=== PATIENT | male | born 2000 | race Asian ===

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

== ENCOUNTER 2021-06-08 16:55 | Emergency (ER) | payer OTHER ==
--- NOTE | 2021-06-08 17:15 | ED Physician Documentation ---
PD HPI HEENT - Stated complaint Stated Complaint: THROAT SWELLING - Chief complaint Chief Complaint: Heent - History obtained from History obtained from: Patient - History of Present Illness Timing - onset: Yesterday Timing - duration: Days (1-2) Timing - details: Gradual onset, Still present (increasing today) Location: Throat (has sore throat and feeling of swelling more to left side. Deels similar to early part of peritonsillar abscess he had couple years ago.) Worsens: Swalllowing Associated symptoms: Swollen nodes. No: Fever, Congestion, Unable to swallow, Facial swelling Similar symptoms before: Diagnosis (had similar onset and then much worsening symptoms previously that was Dx with peritonsillar abscess and required I&D and hospitalized for couppe days.) Recently seen: Not recently seen Review of Systems Constitutional: denies: Fever, Chills Nose: denies: Rhinorrhea / runny nose, Congestion Throat: reports: Sore throat Cardiac: denies: Chest pain / pressure Respiratory: denies: Cough GI: denies: Abdominal Pain, Nausea, Vomiting, Diarrhea Skin: denies: Rash PD PAST MEDICAL HISTORY - Past Medical History Cardiovascular: None Respiratory: None Neuro: None HEENT: Other (prior peritonsillar abscess with surgical drainage in [place] past. ) - Past Surgical History Past Surgical History: No - Present Medications Home Medications: Ambulatory Orders Medication Instructions Recorded Confirmed cephALEXin [Keflex] 500 mg PO QID 5 Days #20 cap 06/08/21 dexAMETHasone [Decadron] 4 mg PO DAILY #5 tablet 06/08/21 diphenhydrAMINE ELIXIR [Benadryl 25 mg PO Q6H PRN #120 ml 06/08/21 Elixir] - Allergies Allergies/Adverse Reactions: Allergies Allergy/AdvReac Type Severity Reaction Status Date / Time No Known Drug Allergies Allergy Verified 06/08/21 17:15 - Social History Does the pt smoke?: No Smoking Status: Never smoker PD ED PE NORMAL - Vitals Vital signs reviewed: Yes - General General: Alert and oriented X 3, No acute distress, Well developed/nourished - HEENT HEENT: No: Pharynx benign (tonsils with some swelling and mild exudate. Left lateral peritonsillar area with some edema but no deviation of the tonsil nor any fluctuance. ) Results - Vitals Vitals: Oxygen O2 Source Room air - Labs Labs: Microbiology 06/08/21 17:23 Group A Strep Throat Culture - Preliminary Throat CULTURE IN PROGRESS. RESULTS TO FOLLOW. Laboratory Tests 06/08/21 17:23 Group A Strep Rapid Negative PD MEDICAL DECISION MAKING - ED course Complexity details: considered differential (has swelling of tonsils with some exudate, but more concern is for some swelling left medial peritonsillar area. No fluctuance. No voice distortion. ), d/w patient Departure - Departure Disposition: 01 Home, Self Care Clinical Impression: Peritonsillitis Acute tonsillitis Qualifiers: Pharyngitis/tonsillitis etiology: unspecified etiology Qualified Code(s): J03.90 - Acute tonsillitis, unspecified Condition: Stable Record reviewed to determine appropriate education?: Yes Instructions: ED Peritonsillar Infec Abx No I andD Follow-Up: LORI Jenkins [Provider Group] Prescriptions: diphenhydrAMINE ELIXIR [Benadryl Elixir] 25 mg PO Q6H PRN #120 ml PRN Reason: Pain dexAMETHasone [Decadron] 4 mg PO DAILY #5 tablet cephALEXin [Keflex] 500 mg PO QID 5 Days #20 cap Comments: Stay well-hydrated. You can use some diphenhydramine liquid periodically for sore throat. Cephalexin as directed for 5 days. Decadron steroid for 5 days as well for inflammation. I would anticipate improvement steadily over the next 2 to 3 days and resolved in that timeframe. Return if worsening. I transmitted your prescription to [facility] in [place]. Discharge Date/Time: 06/08/21 18:06
[2021-06-08] MEDS ORDERED: ACETAMINOPHEN 325 MG TABLET PO STA (17:23)
[2021-06-08] MEDS ORDERED: DEXAMETHASONE 10 MG/ML VIAL IM STA (17:23)
[2021-06-08] MEDS ORDERED: LIDOCAINE 1% 2 ML VIAL MC ONE (17:23)
[2021-06-08] MEDS ORDERED: diphenhydrAMINE ELIXIR 25 MG/10 ML UDC PO STA (17:23)
[2021-06-08] MEDS ORDERED: cefTRIAXone 1 GM VIAL IM STA (17:23)
[2021-06-08 17:34] LABS: RAPID STREP SCREEN Negative (Negative)
[2021-06-08 18:06] VITALS: BP 97/57
== END 2021-06-08 18:06 | disposition home or self-care (01) ==
LOC: ED 16:55
DX: J03.90 Acute tonsillitis, unspecified (principal)
CPT/HCPCS: 87070; 87430; 96372; 99283; A9270

== ENCOUNTER 2021-07-20 10:02 | Emergency (ER) | payer OTHER ==
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
[2021-07-20 11:54] VITALS: BP 107/53
== END 2021-07-20 11:53 | disposition home or self-care (01) ==
LOC: ED 10:02
DX: S60.812A Abrasion of left wrist, initial encounter (principal); S93.401A Sprain of unspecified ligament of right ankle, initial encounter; V89.2XXA Person injured in unspecified motor-vehicle accident, traffic, initial encounter; W22.10XA Striking against or struck by unspecified automobile airbag, initial encounter; Y93.89 Activity, other specified; Y92.411 Interstate highway as the place of occurrence of the external cause; F17.200 Nicotine dependence, unspecified, uncomplicated
CPT/HCPCS: 99282; 99283

== ENCOUNTER 2021-08-17 15:40 | Emergency (ER) | payer OTHER ==
[2021-08-17] MEDS ORDERED: SODIUM CHLORIDE 0.9% 1,000 ML IV STA (16:18)
[2021-08-17] MEDS ORDERED: DEXAMETHASONE 10 MG/ML VIAL PO STA (16:19)
[2021-08-17] MEDS ORDERED: AMPICILLIN/SULBACTAM 3 GM in SODIUM CHLORIDE 0.9% MINIBAG 100 ML IV STA (16:20)
--- NOTE | 2021-08-17 16:27 | ED Physician Documentation ---
History of Present Illness - Stated complaint Stated Complaint: FEVER,SORE THROAT - Chief complaint Chief Complaint: Fever - Additonal information Additional information: 21-year-old male presents emergency department for evaluation of acute sore throat fever dysphonia and difficulty swallowing. Symptoms began yesterday and patient did not think much of it as he recently got the flu vaccine but when he looked in his throat this morning because he could not swallow well and found the swelling he suspected he had a return of a peritonsillar abscess which he was seen and treated for here in June 2020. Review of Systems Constitutional: reports: Fever, Chills Eyes: reports: Reviewed and negative Ears: reports: Reviewed and negative Nose: denies: Rhinorrhea / runny nose, Congestion Throat: reports: Sore throat, Swollen tonsils. denies: Dental pain / toothache Cardiac: reports: Reviewed and negative Respiratory: reports: Reviewed and negative GI: reports: Reviewed and negative : reports: Reviewed and negative PD PAST MEDICAL HISTORY - Past Medical History Cardiovascular: None Respiratory: None Neuro: None Endocrine/Autoimmune: None GI: None : None HEENT: Other Psych: None Musculoskeletal: None Derm: None - Past Surgical History Past Surgical History: Yes - Present Medications Home Medications: Ambulatory Orders Medication Instructions Recorded Confirmed Clindamycin [Cleocin] 450 mg PO TID #72 cap 08/17/21 Oxycodone HCl/Acetaminophen 1 - 2 each PO Q6H PRN #14 tablet 08/17/21 [Percocet 5-325 mg Tablet] predniSONE [Deltasone] 10 mg PO [id number] #42 tab 08/17/21 - Allergies Allergies/Adverse Reactions: Allergies Allergy/AdvReac Type Severity Reaction Status Date / Time No Known Drug Allergies Allergy Verified 07/20/21 10:19 - Social History Does the pt smoke?: Yes Smoking Status: Current some day smoker Does the pt drink ETOH?: Yes Does the pt have substance abuse?: No PD ED PE EXPANDED - General General: Alert, No acute distress, Well developed/nourished - HEENT HEENT: PERRL, EOMI, Ears normal, Tonsillar exudate (Left-sided soft palate asymmetry with swelling. Uvula deviates to the right. Moderate amount of exudate on left-sided tonsils. Difficulty swallowing with dysphonia.) - Cardiac Cardiac: Tachy, Radial strong equal, Cap refill < 2 sec, Prolonged cap refill. No: Murmur Present - Respiratory Respiratory: Clear to ausultation [place]. No: Distress - Abdomen Abdomen: Normal Bowel sounds. No: Tender to palpation - Extremities Extremities: Normal. No: Deformity, Tenderness - Neuro Neuro: Alert and Oriented X 3, CNII-XII intact - GCS Eye Opening: Spontaneous Motor: Obeys Commands Verbal: Oriented Total: 15 Results - Vitals Vitals: Vital Signs - 24 hr 08/17/21 08/17/21 08/17/21 15:51 17:00 18:26 Temperature 38.4 C H 37 C Heart Rate 125 H 93 Respiratory 18 16 Rate Blood Pressure 105/41 L 104/65 O2 Saturation 97 98 Oxygen O2 Source Room air - Labs Labs: Laboratory Tests 08/17/21 08/17/21 08/17/21 16:30 16:34 16:35 WBC 13.0 H RBC 4.62 L Hgb 13.4 L Hct 39.2 L MCV 84.8 MCH 29.0 MCHC 34.2 RDW 12.1 Plt Count 178 MPV 9.7 Neut # (Auto) 10.4 H Lymph # (Auto) 1.0 L [place] # (Auto) 1.2 H Eos # (Auto) 0.2 Baso # (Auto) 0.0 Absolute Nucleated RBC 0.00 Nucleated RBC % 0.0 Sodium 132 L Potassium 3.7 Chloride 97 L Carbon Dioxide 24 Anion Gap 11.0 BUN 13 Creatinine 1.1 Estimated GFR (MDRD) 85 L Glucose 106 H Calcium 9.2 Total Bilirubin 1.3 H AST 15 ALT 12 Alkaline Phosphatase 45 Total Protein 8.3 H Albumin 4.1 Globulin 4.2 Albumin/Globulin Ratio 1.0 Lipase 21 L Group A Strep Rapid Negative - Rads (name of study) Soft tissue neck CT Radiology: Final report received (2.5 cm left peritonsillar abscess with some deviation of tissue rightward. mild narrowing of adjacent airway) PD MEDICAL DECISION MAKING - ED course Complexity details: reviewed results, re-evaluated patient, d/w patient ED course: 21-year-old male presents emergency department for a left [employer]. He had similar in Jun 2020. He did present as febrile and tachycardic though he did not have a significantly elevated white blood cell count. low suspicion for sepsis. his HR and fever improved dramatically with IVF here in the ED CT soft tissue of the neck does show a left peritonsillar abscess measuring in greatest diameter 2.4 cm. Patient was given a dose of Unasyn here in the emergency department as well as [address] Lino Milligan is not available for OMFS consultation today therefore I did consult with Dr. Singer at [facility]. Given that the patient has minimal airway impingement and an otherwise reassuring exam he would recommend clindamycin as an outpatient as well as A prednisone taper. He would recommend close follow-up with either ENT or OMFS for reevaluation given that this is his second episode of peritonsillar abscess. Plan was discussed with the patient. Emergent return precautions were discussed for concerns of worsening swelling or any airway impingement. My narcotic documentation Departure - Departure Disposition: Home, Self Care Clinical Impression: Recurrent peritonsillar abscess Condition: Stable Record reviewed to determine appropriate education?: Yes Prescriptions: Clindamycin [Cleocin] 450 mg PO TID #72 cap predniSONE [Deltasone] 10 mg PO [id number] #42 tab Oxycodone HCl/Acetaminophen [Percocet 5-325 mg Tablet] 1 - 2 each PO Q6H PRN #14 tablet PRN Reason: pain Comments: Fausto you have a left peritonsillar abscess. This was discussed with the on- call ENT physician at [facility] who recommends outpatient treatment initially with a week of antibiotics, prednisone as well as some pain management. I would like you to follow-up with Dr. Lino Laird to talk about long-term management of this recurrent abscess. Lino Laird [phone] [place] [address] I have sent a prescription for clindamycin, prednisone as well as Percocet to the [facility] in [place]. If at any point you find that you are having difficulty breathing, swallowing or feel that your symptoms are not improving, you are to return immediately to the emergency department. I am prescribing a short course of narcotic pain medication for you. These are potentially dangerous and addictive medications that should be used carefully. These medications may constipate you. Take an [id number]-[id number] stool softener (docusate) twice daily with plenty of water while taking these medications. If you go 24 hours without a bowel movement, take [id number] miralax, per p ackage instructions. Do not drink or drive while taking these medications. If you received narcotic or sedating medications while in the emergency department, do not drive for 24 hours. Store this medication in a safe, secure place and out of reach of children. It is a violation of federal law to give or sell this medication to another person or to use in a manner other than prescribed. The ED will not refill narcotic prescriptions, including prescriptions lost or stolen. To dispose of unwanted medications: 1. [facility] at [address] in [place] has a medication drop box. They accept prescription medications (in pill form) Friday through Friday 9:00 a.m. to 5:00 p.m. 2. The [facility] [employer] accepts prescription medications (in pill form only) for disposal year round. Call for more information. 3. Contact the [facility] for the next [facility] sponsored prescription drug collection event. , [phone], or [phone]; Note that many narcotic pain relievers also contain Tylenol/acetaminophen. Please ensure that your total dose of acetaminophen from all sources does not exceed 3 g (3000 mg) per day.
[2021-08-17] MEDS ORDERED: CHERRY SYRUP 10 ML UDC PO STA (16:29)
[2021-08-17] MEDS ORDERED: IOVERSOL 320 100 ML VIAL IVP ONE ×2 (16:49→19:15)
[2021-08-17 16:50] LABS: BASOPHILS % (AUTO) 0.2 %; EOSINOPHILS # (AUTO) 0.2 10^3/uL (0.0-0.7); EOSINOPHILS % (AUTO) 1.6 %; HCT - HEMATOCRIT 39.2 % (42.0-52.0); HGB - HEMOGLOBIN 13.4 g/dL (14.0-18.0); MEAN CORPUSCULAR HGB CONC 34.2 g/dL (32.0-36.0); MEAN CORPUSCULAR VOLUME 84.8 fL (80.0-94.0); MEAN PLATELET VOLUME 9.7 fL (7.4-11.4); MONOCYTES # (AUTO) 1.2 10^3/uL (0.0-1.0); MONOCYTES % (AUTO) 9.5 %; NEUTROPHILS # (AUTO) 10.4 10^3/uL (1.5-6.6); NEUTROPHILS % (AUTO) 80.2 %; PLT - PLATELET COUNT 178 10^3/uL (130-450); RED BLOOD COUNT 4.62 10^6/uL (4.70-6.10); RED CELL DISTRIBUTION WIDTH 12.1 % (12.0-15.0)
[2021-08-17 17:05] LABS: RAPID STREP SCREEN Negative (Negative)
[2021-08-17 17:05] LABS: ALBUMIN 4.1 g/dL (3.2-5.5); BILIRUBIN,TOTAL 1.3 mg/dL (0.2-1.0); CALCIUM 9.2 mg/dL (8.5-10.3); CREATININE 1.1 mg/dL (0.6-1.2); POTASSIUM 3.7 mmol/L (3.5-5.0); TOTAL PROTEIN 8.3 g/dL (6.7-8.2)
--- NOTE | 2021-08-17 18:24 | CT Report ---
PROCEDURE: SOFT TISSUE NECK W INDICATIONS: left peritonsillar abscess CONTRAST: IV CONTRAST: Optiray 320 ml: 100 PO CONTRAST: *NO PO CONTRAST TECHNIQUE: After the administration of intravenous contrast, 3.0 mm axial sections acquired from the sella to th e aortic arch. Additional oblique axial 3.0 mm sections acquired through the pharynx. 3 mm thick co jean-pierre reformats were generated. For radiation dose reduction, the following was used: automated exp osure control, adjustment of mA and/or kV according to patient size. COMPARISON: CT soft tissue neck dated 07/11/2020 FINDINGS: Image quality: Excellent. Lymph nodes: Borderline enlarged left level 5 lymph node on image 106/11. Vessels: Visualized vasculature appears patent. Neck spaces: Rim-enhancing ill-defined fluid collection seen within the region of the left tonsillar pillar is noted measuring approximately 2.4 x 2.2 cm. There is associated rightward displacement and mild narrowing of the adjacent airway. Glands: The parotid and submandibular glands appear normal. The thyroid is normal in size and there are no incidental findings. Miscellaneous: Visualized brain and orbits appear normal. Lung apices appear clear. Superficial so ft tissues appear normal. Bones: No suspicious bony lesions. Visualized sinuses and mastoids appear unremarkable. IMPRESSION: Large abscess in the region of the left tonsillar pillar as detailed above. Findings (including all critical results) and recommendations were personally telephoned and discusse d with the patient's physician in the ER on 08-17-21 18:21 CLINICAL RECOMMENDATION STATEMENTS: In patients <35 years with an ITN detected on CT, MRI, or extrathyroidal ultrasound, the Committee re commends further evaluation with dedicated thyroid ultrasound if the nodule is "e1 cm and has no susp icious imaging features, and if the patient has normal life expectancy. In patients "e35 years with an ITN detected on CT, MRI, or extrathyroidal ultrasound, the Committee r ecommends further evaluation with dedicated thyroid ultrasound if the nodule is "e1.5 cm and has no s uspicious imaging features, and if the patient has normal life expectancy. (ACR, 2014) Reviewed by: Konrad Vail MD on 08/17/2021 6:22 PM PST Approved by: Konrad Vail MD on 08/17/2021 6:22 PM PST Station ID: [id number]
[2021-08-17 18:55] VITALS: BP 111/63
[2021-08-17 18:57] LABS: B. PARAPERTUSSIS- RESP PCR PAN NOT DETECTED; B. PERTUSSIS- RESP PCR PANEL NOT DETECTED; C. PNEUMONIAE- RESP PCR PANEL NOT DETECTED; CORONAVIRUS 229E-RESP PCR NOT DETECTED; CORONAVIRUS HKU1-RESP PCR NOT DETECTED; CORONAVIRUS NL63-RESP PCR NOT DETECTED; CORONAVIRUS OC43-RESP PCR NOT DETECTED; HUMAN METAPNEUMOVIRUS NOT DETECTED; INFLUENZA A- RESP PCR PANEL NOT DETECTED; INFLUENZA B - RESP PCR PANEL NOT DETECTED; M. PNEUMONIAE- RESP PCR PANEL NOT DETECTED; PARAINFLUENZA VIRUS 1 NOT DETECTED; PARAINFLUENZA VIRUS 2 NOT DETECTED; PARAINFLUENZA VIRUS 3 NOT DETECTED; PARAINFLUENZA VIRUS 4 NOT DETECTED; RHINOVIRUS/ENTEROVIRUS NOT DETECTED; RSV- RESP PCR PANEL NOT DETECTED; SARS-CoV-2 -RESP PCR PANEL NOT DETECTED
== END 2021-08-17 18:57 | disposition home or self-care (01) ==
LOC: ED 15:40
DX: J36 Peritonsillar abscess (principal); F17.200 Nicotine dependence, unspecified, uncomplicated; Z20.822 Contact with and (suspected) exposure to COVID-19
CPT/HCPCS: 0202U; 36415; 70491; 80053; 83690; 85025; 87070; 87430; 96365; 99284; A9270; Q9967